=== PATIENT | female | born 1955 | race African-American/Black ===

== ENCOUNTER 2017-03-22 23:28 | Emergency (ER) | payer SELFPAY ==
[~2017-03-22] VITALS: Ht 160 cm; Wt 75.0 kg
[2017-03-23 00:11] VITALS: BP 151/83
== END 2017-03-23 08:54 | disposition left against medical advice (07) ==
LOC: ER 23:28
DX: M54.9 Dorsalgia, unspecified (principal); Z53.21 Procedure and treatment not carried out due to patient leaving prior to being seen by health care provider